=== PATIENT | male | born 1955 | race Caucasian/White ===

== ENCOUNTER → 2018-04-19 | Outpatient (CLI) | payer MEDICARE, OTHER | END | disposition home or self-care (01) | LOC: CDC 04-18 10:30 | DX: Z01.810 Encounter for preprocedural cardiovascular examination (principal); M19.041 Primary osteoarthritis, right hand; M79.641 Pain in right hand; G56.01 Carpal tunnel syndrome, right upper limb; I45.10 Unspecified right bundle-branch block | CPT/HCPCS: 93000 ==